=== PATIENT | female | born 1960 | race Caucasian/White ===

== ENCOUNTER 2017-05-09 10:08 | Outpatient (CLI) | payer BC | END 2017-05-09 10:09 | disposition home or self-care (01) | LOC: BICMAMMO 10:08 | PROVIDERS: ATTEND Obstetrics & Gynecology | DX: Z12.31 Encounter for screening mammogram for malignant neoplasm of breast (principal) | CPT/HCPCS: 77063 ==

== ENCOUNTER 2018-06-18 11:16 | Outpatient (CLI) | payer BC | END 2018-06-18 11:17 | disposition home or self-care (01) | LOC: BICMAMMO 11:16 | PROVIDERS: ATTEND Obstetrics & Gynecology | DX: Z12.31 Encounter for screening mammogram for malignant neoplasm of breast (principal); N64.89 Other specified disorders of breast; R92.1 Mammographic calcification found on diagnostic imaging of breast | CPT/HCPCS: 77063; 77067 ==

== ENCOUNTER 2018-08-05 09:10 | Outpatient (CLI) | payer BC ==
--- NOTE | 2018-08-05 11:18 | BD ---
BONE DENSITOMETRY USING DEXA: HISTORY: Postmenopausal screening for osteoporosis. FINDINGS LUMBAR SPINE BMD (g/cm2) T-SCORE Z-SCORE L1 0.857 -1.2 -0.1 L2 0.926 -0.9 0.4 L3 0.809 -2.5 -1.1 L4 0.906 -1.4 0.0 TOTAL 0.872 -1.6 -0.3 BMD (g/cm2) T-SCORE Z-SCORE NECK: 0.684 -1.5 -0.3 TOTAL: 0.871 -0.6 0.3 The 10-year fracture risk for a major osteoporotic fracture is 7.4% and for a hip fracture is 0.6%. IMPRESSION: Osteopenia. POS: [facility]
== END 2018-08-05 09:11 | disposition home or self-care (01) ==
LOC: BICMAMMO 09:10
PROVIDERS: ATTEND Obstetrics & Gynecology
DX: Z13.820 Encounter for screening for osteoporosis (principal); M85.89 Other specified disorders of bone density and structure, multiple sites
CPT/HCPCS: 77080